=== PATIENT | female | born 1955 | race Caucasian/White ===

== ENCOUNTER 2019-08-10 14:30 | Outpatient (CLI) | payer OTHER, MEDICARE, SELFPAY ==
--- NOTE | ~2019-08-10 | XR_ITS ---
XR ankle RT 2V, XR foot RT min 3V 08/10/2019 15:07 (accession [id number]), 08/10/2019 15:06 (accession [id number]) Indication: Localized infection of the skin and subcutaneous tissues. Procedure: 2 views right ankle and 5 views right foot Comparison: No prior studies for comparison. Findings: Ankle mortise intact. Mild lateral soft tissue swelling. Talar dome is normal. There is lyt ic destruction of the first metatarsal head as well as the base of the first proximal and distal phal anges. There is probable pathologic fracture through the metatarsal head. Moderate soft tissue swelli ng. Lisfranc joint intact. Impression: 1: Lytic destruction of the first metatarsal head as well as the first proximal and distal phalanges with probable pathologic fracture of the metatarsal head. These findings are compatible with osteomye litis. Correlate clinically. Reviewed, dictated and finalized at location A. [employer] Impression: 1: Lytic destruction of the first metatarsal head as well as the first proximal and distal phalanges with probable pathologic fracture of the metatarsal head. These findings are compatible with osteomyelitis. Correlate clinically. Impression: 1: Lytic destruction of the first metatarsal head as well as the first proximal and distal phalanges with probable pathologic fracture of the metatarsal head. These findings are compatible with osteomyelitis. Correlate clinically.
[2019-08-10 15:56] LABS: Basophils Absolute Auto 0.1 K/mm3 (0.0-0.1); Basophils Percent Auto 0.4 % (0.2-1.2); Eosinophils Absolute Auto 0.3 K/mm3 (0-0.3); Eosinophils Percent Auto 2.2 % (0-4.4); Hemoglobin 10.1 g/dL (12.0-15.0); Immature Granulocyte Absolute 0.11 K/mm3 (0.00-0.031); Immature Granulocyte Percent A 0.9 % (0-0.5); Lymphocytes Percent Auto 20.8 % (18.3-44.2); Mean Corpuscular HGB Conc 30.6 g/dl (32-36); Mean Corpuscular Hemoglobin 25.2 pg (26-34); Mean Corpuscular Volume 82.3 fl (80-100); Mean Platelet Volume 8.9 fl (7.4-10.4); Monocytes Absolute Auto 0.8 K/mm3 (0.1-0.6); Monocytes Percent Auto 6.3 % (2.6-8.5); Neutrophils Absolute Auto 8.7 K/mm3 (1.3-6.7); Neutrophils Percent Auto 69.4 % (45.5-73.1); Platelet Count Result 410 k/mm3 (150-375); Red Blood Count 4.01 M/mm3 (4.2-5.4); Red Cell Distribution Width 14.5 % (11.5-14.5); White Blood Count 12.5 K/mm3 (4.5-10.0)
[2019-08-10 16:07] LABS: Blood Urea Nitrogen 11 mg/dL (7-17); Calcium 8.4 mg/dL (8.4-10.2); Carbon Dioxide 29 mmol/L (22-30); Chloride 95 mmol/L (98-107); Estimated Glomerular Filt Rate > 60; Glucose 150 mg/dL (65-105); Hemoglobin A1C 10.4 % (<5.7); Potassium 3.9 mmol/L (3.4-5.0); Sodium 139 mmol/L (137-145); Uric Acid 6.5 mg/dL (2.5-7.5)
[2019-08-10 16:28] LABS: Creatinine Urine 250.9 mg/dL
[2019-08-10 16:32] LABS: MALB Creatinine Ratio 26.2 mg/g (0-30); Microalbumin Urine Random 65.8 mg/L (0-16.7)
== END 2019-08-10 14:31 | disposition home or self-care (01) ==
PROVIDERS: PCP Family Medicine; Visit Provider Nurse Practitioner Family
DX: E11.65 Type 2 diabetes mellitus with hyperglycemia (principal); L08.9 Local infection of the skin and subcutaneous tissue, unspecified; M79.673 Pain in unspecified foot; M25.579 Pain in unspecified ankle and joints of unspecified foot
CPT/HCPCS: 36415; 73600; 73630; 80048; 82043; 83036; 84550; 85025

== ENCOUNTER 2020-11-15 15:39 | Outpatient (CLI) | payer OTHER, MEDICARE, SELFPAY ==
[2020-11-15 16:05] LABS: Basophils Absolute Auto 0.1 K/mm3 (0.0-0.1); Basophils Percent Auto 0.5 % (0.2-1.2); Eosinophils Absolute Auto 0.5 K/mm3 (0-0.3); Eosinophils Percent Auto 4.2 % (0-4.4); Hematocrit 37.2 % (37.0-47.0); Hemoglobin 12.4 g/dL (12.0-15.0); Immature Granulocyte Absolute 0.18 K/mm3 (0.00-0.031); Immature Granulocyte Percent A 1.6 % (0-0.5); Lymphocytes Absolute Auto 3.47 K/mm3 (0.9-3.2); Lymphocytes Percent Auto 31.6 % (18.3-44.2); Mean Corpuscular HGB Conc 33.3 g/dl (32-36); Mean Corpuscular Hemoglobin 28.7 pg (26-34); Mean Corpuscular Volume 86.1 fl (80-100); Mean Platelet Volume 9.7 fl (7.4-10.4); Monocytes Absolute Auto 0.6 K/mm3 (0.1-0.6); Monocytes Percent Auto 5.3 % (2.6-8.5); Neutrophils Absolute Auto 6.2 K/mm3 (1.3-6.7); Neutrophils Percent Auto 56.8 % (45.5-73.1); Platelet Count Result 235 k/mm3 (150-375); Red Blood Count 4.32 M/mm3 (4.2-5.4); Red Cell Distribution Width 13.7 % (11.5-14.5)
[2020-11-15 16:31] LABS: Alanine Aminotransferase 8 U/L (4-35); Alkaline Phosphatase 112 U/L (38-126); Anion Gap 8 mmol/L (8-16); Aspartate Amino Transferase 23 U/L (14-36); Bilirubin,Total 0.3 mg/dL (0.2-1.3); Blood Urea Nitrogen 15 mg/dL (7-17); Calcium 8.4 mg/dL (8.4-10.2); Carbon Dioxide 31 mmol/L (22-30); Chloride 100 mmol/L (98-107); Cholesterol 310 mg/dL (0-200); Estimated Glomerular Filt Rate 41; Glucose 259 mg/dL (65-105); Potassium 4.5 mmol/L (3.4-5.0); Sodium 139 mmol/L (137-145)
[2020-11-15 17:12] LABS: Creatinine Urine 188.7 mg/dL
[2020-11-15 17:15] LABS: MALB Creatinine Ratio 42.4 mg/g (0-30); Microalbumin Urine Random 80.1 mg/L (0-16.7)
[2020-11-15 17:28] LABS: Free T4 Free Thyroxine 0.43 ng/mL (0.78-2.19)
[2020-11-15 18:32] LABS: Triglycerides 791 mg/dL (<150)
[2020-11-15 19:05] LABS: LDL Cholesterol Direct 114 mg/dL
== END 2020-11-15 15:40 | disposition home or self-care (01) ==
LOC: ANHLAB 15:41
PROVIDERS: PCP Family Medicine; Visit Provider Family Medicine
DX: E03.9 Hypothyroidism, unspecified (principal); N18.31 Chronic kidney disease, stage 3a; E11.65 Type 2 diabetes mellitus with hyperglycemia; Z79.4 Long term (current) use of insulin; E78.2 Mixed hyperlipidemia; Z13.220 Encounter for screening for lipoid disorders
CPT/HCPCS: 36415; 80048; 80061; 80076; 82043; 84439; 84443; 85025